=== PATIENT | female | born 1995 | race Hispanic/Latino ===

== ENCOUNTER 2018-02-16 20:58 | Inpatient (IN) | payer MEDICAID ==
[2018-02-16] MEDS ORDERED: LACTATED RINGERS 1,000 ML ONE (21:57)
[2018-02-16] MEDS ORDERED: XYLOCAINE 2% INFILTRATI ONE (22:30)
[2018-02-16] MEDS ORDERED: BRETHINE SUB-Q PRN (22:30)
--- NOTE | 2018-02-16 22:47 | History and Physical Report ---
History of Present Illness Date of examination: 02/16/18 Date of admission: 02/16/18 21:23 Chief complaint: Here for induction of labor due to morbid obesity and preeclampsia superimposed on chronic hypertension. History of present illness: 22 year old presents for cervical ripening and induction of labor due to morbid obesity and chronic hypertension. Patient has received care at [facility]ISTORY; she has also been receiving care at [facility]. Patient is morbidly obese and has been diagnosed with mild preeclampsia superimposed on chronic hypertension. Patient had elevated 1 hour sugar test but negative 3 hour OGTT. LMP 05/19/17. EDC 02/23/18. EGA 39 weeks. Patient reports active movement. She reports irregular mild contractions. She denies leaking of fluid or vaginal bleeding. She denies headache, visual disturbance, nausea or vomiting, swelling, or epigastric pain. labs are as follows: O+, antibody screen negative, rubella immune, RPR nonreactive, HIV negative, hemoglobin electrophoresis AA, GC negative, chlamydia negative, HSV 2 negative, diabetes screen 147, 3 hour OGTT negative ( 82, 150, 96, 58), GBS negative, hepatitis B surface antigen negative, pap negative. Past History Past Medical History: other (morbid obesity) Past Surgical History: tonsillectomy [employer] H[employer]ORY History: denies: chlamydia, gonorrhea, hepatitis B, herpes, HIV, syphilis Family/Genetic History: other (strong family history of autism (dad, siblings, FOB sister).) Social history: single, full code. denies: smoking, alcohol abuse - Obstetrical History Expected Date of Delivery: 02/23/18 Actual Gestation: 39 Week(s) 0 Day(s) : 2 Para: 0 Hx # Term Pregnancies: 1 Number of Pregnancies: 0 Spontaneous Abortions: 1 Induced : 0 Number of Living Children: 0 Medications and Allergies Allergies Allergy/AdvReac Type Severity Reaction Status Date / Time No Known Allergies Allergy Verified 02/16/18 22:51 Active Meds: Active Medications Ephedrine Sulfate (Ephedrine Sulfate) 10 mg IV Q2M PRN PRN Reason: Hypotension Lactated Ringer's (Lactated Ringers) 1,000 mls @ 125 mls/hr IV DIRECT JESSIKA Oxytocin/Sodium Chloride (Pitocin/Ns 20 Unit/1000ml Drip) 20 units in 1,000 mls @ 125 mls/hr IV DIRECT JESSIKA Oxytocin/Sodium Chloride (Pitocin/Ns 30 Unit/500ml) 30 units in 500 mls @ 0 mls /hr IV TITR JESSIKA; Protocol Labetalol HCl (Normodyne) 200 mg PO BID JESSIKA Lidocaine (Xylocaine 2%) 20 ml INFILTRATI ONCE ONE Stop: 02/16/18 22:31 Terbutaline Sulfate (Brethine) 0.25 mg SUB-Q ONCE PRN PRN Reason: Hyperstimulation/Hypertonicity Review of Systems All systems: negative (no complaints) - Vital Signs Vital signs: Vital Signs Pulse BP 115 H 130/69 02/16/18 21:20 02/16/18 21:20 Temp Pulse Resp BP Pulse Ox 117 H 130/69 98 02/16/18 22:44 02/16/18 21:20 02/16/18 22:44 - Physical Exam Breasts: Positive: deferred Cardiovascular: Regular rate, Normal S1, Normal S2, No murmurs Lungs: Positive: Clear to auscultation Abdomen: Positive: normal appearance, soft, other (obese). Negative: distention , tenderness, guarding, rigidity Genitourinary (Female): Positive: normal external genitalia. Negative: perineal /vulvar lesions (no lesions seen on careful exam with bright light upon admission) Vagina: Positive: normal moisture Uterus: Positive: enlarged Anus/Rectum: Positive: normal perianal skin Extremities: Positive: normal - Obstetrical FHR: category 1 Uterine Contraction Monitor Mode: External Cervical Dilatation: 0 Cervical Effacement Percentage: 50 station: -4 Uterine Contraction Pattern: Irregular Uterine Contraction Intensity: Mild Results All other labs normal. Assessment and Plan A: at 39 weeks gestation. Morbid obesity. Chronic hypertension with superimposed mild preeclampsia. GBS negative. P: Admit. Cervical ripening and induction of labor. Continuous EFM. Discussed with patient risks and benefits of cervical ripening and induction of labor; patient consented to cervical ripening and induction of labor.
[2018-02-16] MEDS ORDERED: LACTATED RINGERS 1,000 ML IV SCH (23:00)
[2018-02-16] MEDS ORDERED: PITOCin/NS 30 UNIT/500ML 30 UNITS/500 ML BAG IV SCH (23:00)
[2018-02-16] MEDS ORDERED: PITOCin/NS 20 UNIT/1000ML DRIP 20 UNITS/1,000 ML BAG IV SCH (23:00)
[2018-02-16 23:27] LABS: Hematocrit 35.8 % (30.3-42.9); Hemoglobin 11.8 gm/dl (10.1-14.3); Mean Corpuscular HGB Conc 33 % (30-34); Mean Corpuscular Hemoglobin 26 pg (28-32); Mean Corpuscular Volume 79 fl (79-97); Platelet Count 321 K/mm3 (140-440); Red Blood Count 4.52 M/mm3 (3.65-5.03); Red Cell Distribution Width 14.7 % (13.2-15.2)
[2018-02-16 23:43] LABS: Alanine Aminotransferase 8 units/L (7-56); Albumin 3.2 g/dL (3.9-5); BUN/Creatinine Ratio 18; Blood Urea Nitrogen 7 mg/dL (7-17); Calcium 9.5 mg/dL (8.4-10.2); Hemolysis Index 52
--- NOTE | 2018-02-17 00:39 | Ultrasound Report ---
FINAL REPORT EXAM: US OB FOLLOW UP HISTORY: size vs dates; position TECHNIQUE: Transabdominal sonographic evaluation was performed of the female pelvis with and without color Doppler imaging. PRIORS: None. FINDINGS: The uterine myometrium is unremarkable with no focal lesion identified. Single intrauterine in cephalic presentation. Measurements: BPD: 9.80 cm, 40 weeks and 1 days ([place]) HC: 35.31 cm, 41 weeks and 2 days ([place]) AC: 36.77 cm, 40 weeks and 5 days ([place]) FL: 7.87 cm, 40 weeks and 2 days ([place]) HC/AC: 0.96 Cephalic index: 85.3 KVNG: 17.5 cm. EFW 4138 grams FHR: 166 bpm GA (LMP): 39 week 0 day. BOB (LMP): 02/23/2018. GA (AUA): 40 week 4 day. BOB (AUA): 02/13/2018. IMPRESSION: Viable, single intrauterine . Estimated age by ultrasound criteria 40 weeks 4 days.
[2018-02-17] MEDS ORDERED: AMBIEN PO PRN (01:03)
[2018-02-17] MEDS: NORMODYNE PO SCH ×3 (01:20→21:45)
[2018-02-17] MEDS: HYTONE CR TP PRN (01:45)
[2018-02-17] MEDS: ALUM-MAG HYDROX-SIMETH 200-200-20MG/5ML PO PRN ×2 (01:46→06:19)
[2018-02-17 03:35] LABS: Bacteria,Urine 3+ /HPF (Negative); Bilirubin,Urine NEG (Negative); Blood,Urine NEG (Negative); Color,Urine Yellow (Yellow); Mucus,Urine FEW /HPF; Protein,Urine <15 mg/dL mg/dL (Negative); Urobilinogen,Urine < 2.0 mg/dL (<2.0)
--- NOTE | 2018-02-17 10:36 | Event Note ---
Date: 02/17/18 Estimated weight by ultrasound is slightly over 9 lbs. Patient was receiving low dose Pitocin for cervical ripening overnight but difficulty tracing baby with EFM due to patient's habitus and her difficulty getting comfortable in the bed. Discussed with Dr. Aviles estimated weight, difficulty tracing the baby, unfavorable cervical exam, inability to run Pitocin since not tracing heart rate well with external monitor. Dr. Aviles recommends section. Discussed this with patient. Patient states she would like to have section for delivery. Informed Dr. Aviles of patient's decision and RN notified to plan for section around noon today.
[2018-02-17] MEDS ORDERED: PEPCID IV SCH (11:31)
[2018-02-17] MEDS ORDERED: BICITRA PO SCH (11:31)
[2018-02-17] MEDS ORDERED: LACTATED RINGERS 1,000 ML IV SCH (12:00)
[2018-02-17] MEDS ORDERED: ANCEF/STERILE WATER 2 GM/20 ML 2 GM/20 ML SYRINGE IV NR (12:00)
[2018-02-17] MEDS ORDERED: PITOCin/NS 20 UNIT/1000ML DRIP 20 UNITS/1,000 ML BAG IV SCH ×2 (12:00→17:00)
[2018-02-17] MEDS ORDERED: REGLAN IV ONE (12:00)
--- NOTE | 2018-02-17 12:32 | Anesthesia Consultation ---
Anesthesia Consult and Med Hx Date of service: 02/17/18 - Pre-Operative Health Status ASA Pre-Surgery Classification: ASA3 Proposed Anesthetic Plan: Epidural, Spinal - Pre-Anesthesia Comment Pre-Anesthesia Comments: 39wks gestation PMH morbid obesity, cHTN with superimposed pre-eclampsia scheduled for primary c/s 2/2 failure to progress. - Pulmonary Hx Asthma: Yes (prn inhaler use; last exacerbation 6 yrs ago) Hx Pneumonia: No - Cardiovascular System Hx Hypertension: Yes (cHTN with superimposed pre-eclampsia) - Central Nervous System Hx Seizures: No Hx Psychiatric Problems: No - Endocrine Hx Renal Disease: No Hx Liver Disease: No Hx Insulin Dependent Diabetes: No Hx Non-Insulin Dependent Diabetes: No Hx Thyroid Disease: No - Hematic Hx Anemia: No Hx Sickle Cell Disease: No - Other Systems Hx Alcohol Use: Yes
[2018-02-17] MEDS ORDERED: PHENERGAN PR PRN (14:57)
[2018-02-17] MEDS ORDERED: DILAUDID IV PRN (14:57)
[2018-02-17] MEDS ORDERED: NUBAIN IV PRN (14:57)
[2018-02-17] MEDS ORDERED: NARCAN 0.4 MG/1 ML IV PRN ×2 (14:57→16:26)
[2018-02-17] MEDS ORDERED: ZOFRAN IV PRN (14:57)
[2018-02-17] MEDS ORDERED: PHENERGAN PO PRN (14:57)
[2018-02-17] MEDS ORDERED: SODIUM CHLORIDE FLUSH SYRINGE 10 ML IV NR (15:00)
[2018-02-17] MEDS ORDERED: NEO SYNEPHRINE/NS Syringe(OR USE) IV ONE (15:26)
[2018-02-17] MEDS ORDERED: ZOFRAN ONE (15:26)
[2018-02-17] MEDS ORDERED: NACL 0.9% IR ONE (15:40)
[2018-02-17] MEDS ORDERED: WATER FOR IRRIG STERILE IR ONE (15:40)
[2018-02-17] MEDS ORDERED: MORPHINE ONE (15:52)
[2018-02-17] MEDS ORDERED: HEMABATE IM ONE (15:53)
[2018-02-17] MEDS ORDERED: NACL P/F VIAL (10 ML) 10 ML ONE (15:55)
[2018-02-17] MEDS ORDERED: XYLOCAINE CARDIAC IV ONE (15:58)
--- NOTE | 2018-02-17 16:23 | Operative Report ---
Operative Report Operative Report: Date of procedure: 02/17/2018 Pre-operative diagnosis: 1. Intrauterine at 39-0/7 weeks 2. Chronic hypertension with superimposed preeclampsia 3. Morbid obesity 4. Suspected macrosomia Post-operative diagnosis: Same Procedure name(s): Primary low transverse section Surgeon: Jax Aviles MD Gas Load Dispatcher: None Anesthesia: Spinal anesthesia by Dr. Figueredo EBL: 400 mls Findings: A 3793 g female Apgars 8 at 1 minute 9 at 5 minutes. Clear amniotic fluid. Normal uterus. Normal tubes and ovaries bilaterally. Procedure: After the patient was prepped and draped in usual sterile fashion, and after satisfactory level of epidural anesthesia was obtained, the skin knife was used to make a transverse skin incision. The incision was excised down to layer of the fascia, which was nicked in the midline and extended laterally using the Bovie cautery. The rectus muscles were dissected off the rectus fascia both superiorly and inferiorly. The rectus bellies in the midline, and the peritoneum was entered under direct visualization. The peritoneal incision was extended superiorly and inferiorly. A bladder flap was created and the bladder blade was then placed. The uterus was scored in a curvilinear linear fashion, entered in the midline revealing clear amniotic fluid. The infant's head was delivered onto the surgical field, and the oropharynx and nasopharynx were bulb suctioned. The rest of the infant's body was delivered, cord was doubly clamped and cut and the infant was handed to the waiting respiratory team. Cord blood was then obtained. The placenta was manually removed from the uterus, and the uterus removed from its normal anatomical position. After gentle uterine lavage, the incision was inspected and found to be without extensions. It was then closed in 2 layers using 0 Vicryl suture in a running interlocking fashion, the second layer imbricating the first. After good hemostasis was achieved, copious amounts or irrigation was performed, and the gutters were suctioned free of blood and blood clots. Tisseel sealant was sprayed across the uterine incision. The uterus was then returned to its normal anatomical position, and after excellent hemostasis assured, the peritoneum was re-approximated using 3-0 Vicryl suture in a running interlocking fashion, and then the rectus muscles were re-approximated using 3-0 Vicryl suture in a [id number] configuration. The fascia was then re-approximated using 0 Vicryl suture in running interlocking fashion. The subcutaneous layer was made hemostatic using Bovie cautery, the Tisseel sealant was sprayed across the fascial incision and the skin edges re- approximated using 4-0 Vicryl suture in a sub-cuticular fashion. Patient tolerated the procedure well was transported to recovery in stable condition.
[2018-02-17] MEDS ORDERED: MYLICON PO PRN (16:26)
[2018-02-17] MEDS ORDERED: NORCO 5/325 PO PRN (16:26)
[2018-02-17] MEDS ORDERED: TUCKS PAD TP PRN (16:26)
[2018-02-17] MEDS ORDERED: LANSINOH TP PRN (16:26)
[2018-02-17] MEDS ORDERED: SENOKOT PO PRN (16:26)
[2018-02-17] MEDS ORDERED: PERCOCET 5/325 PO PRN (16:26)
[2018-02-17] MEDS ORDERED: MILK OF MAGNESIA PO PRN (16:26)
[2018-02-17] MEDS ORDERED: SODIUM CHLORIDE FLUSH SYRINGE 10 ML IV SCH (17:00)
[2018-02-17] MEDS ORDERED: D5LR 1,000 ML IV SCH (17:00)
[2018-02-17] MEDS: TORADOL IV SCH (20:15)
[2018-02-17] MEDS: TYLENOL PO SCH (20:15)
[2018-02-17] MEDS: ANCEF/NS 1 GM/50 ML 1 GM/50 ML BAG IV SCH (21:00)
[2018-02-18] MEDS: TORADOL IV SCH ×3 (02:45→17:20)
[2018-02-18] MEDS: TYLENOL PO SCH ×2 (02:45→10:20)
[2018-02-18 06:05] LABS: Hematocrit 29.3 % (30.3-42.9); Hemoglobin 9.5 gm/dl (10.1-14.3)
[2018-02-18] MEDS: ANCEF/NS 1 GM/50 ML 1 GM/50 ML BAG IV SCH (06:26)
[2018-02-18] MEDS ORDERED: BOOSTRIX IM ONE (06:28)
--- NOTE | 2018-02-18 07:45 | Progress Note ---
Assessment and Plan A: /postop day 1 S/P primary LTCS. Anemia. Skin rash, possible PUPPP. Morbid obesity. Chronic hypertension with superimposed preeclampsia. P: Encouraged ambulation. Advance diet as tolerated. Continue Hydrocortisone ointment for rash. Pt. to have dermatology consult tomorow if rash not improved. Supplement with iron. Subjective - Subjective Date of service: 02/18/18 Principal diagnosis: /postop day 1 S/P primary LTCS Interval history: /postop day 1 S/P primary LTCS. Patient is doing well. She is bottlefeeding. She reports small amount of lochia. Monsivais catheter has been removed and patient states she has not needed to void yet this morning since it was removed. Patient reports she is passing gas. She denies nausea and vomiting. Ambulating well. Patient denies headache, cough, shortness of breath, chest pain, leg pain, or abdominal pain. Patient denies visual disturbance or generalized edema. Patient has a rash on abdomen and both arms and legs. She states she was told by OB provider at office that this is PUPPP rash. Patient is currrently using Hydrocortisone cream to control the symptoms of itching. Patient reports: appetite normal, pain well controlled, flatus, ambulating normally [place]: doing well Objective - Vital Signs Latest vital signs: Vital Signs Temp Pulse Resp BP BP Pulse Ox 02/17/18 21:45 95 H 112/64 02/17/18 21:35 98.2 F 95 H 112/64 18 L 02/17/18 19:03 97.4 F L 84 22 125/84 98 02/17/18 17:30 98.1 F 86 17 110/67 97 02/17/18 17:15 88 16 104/67 97 02/17/18 17:00 94 H 20 112/64 97 02/17/18 16:55 92 H 21 111/60 97 02/17/18 16:50 98.0 F 88 20 103/61 02/17/18 16:45 88 21 110/63 97 02/17/18 16:38 87 18 104/61 02/17/18 16:33 98.0 F 81 20 98/55 97 02/17/18 15:18 97 02/17/18 14:21 96 H 133/80 02/17/18 13:20 96 H 132/71 08/18/18 12:34 107 H 122/58 08/18/18 11:38 51 L 81 L 08/18/18 11:36 108 H 97 08/18/18 11:31 107 H 97 08/18/18 11:26 109 H 96 08/18/18 11:21 108 H 96 08/18/18 11:16 105 H 98 08/18/18 11:15 107 H 0 L 08/18/18 11:11 111 H 96 08/18/18 11:06 110 H 97 08/18/18 10:55 111 H 97 08/18/18 10:50 103 H 97 08/18/18 10:45 104 H 96 08/18/18 10:40 105 H 98 08/18/18 10:36 109 H 93 08/18/18 10:35 109 H 94 08/18/18 10:30 112 H 98 08/18/18 10:25 107 H 96 08/18/18 10:20 122 H 97 08/18/18 10:19 112 H 148/89 93 08/18/18 10:15 110 H 97 08/18/18 10:11 111 H 129/73 08/18/18 10:10 112 H 98 08/18/18 10:05 103 H 99 08/18/18 10:00 106 H 95 08/18/18 09:55 104 H 98 08/18/18 09:50 112 H 98 08/18/18 09:45 107 H 98 08/18/18 09:40 104 H 97 08/18/18 09:34 103 H 129/73 08/18/18 09:08 82 97 08/18/18 09:03 91 H 96 08/18/18 08:58 93 H 97 08/18/18 08:56 110 H 91 08/18/18 08:53 101 H 91 08/18/18 08:48 105 H 91 08/18/18 08:43 100 H 91 08/18/18 08:41 82 94 08/18/18 08:38 102 H 97 08/18/18 08:33 99 H 98 08/18/18 08:28 99 H 98 08/18/18 08:23 92 H 98 08/18/18 08:21 94 H 117/52 08/18/18 08:18 88 97 08/18/18 08:13 96 H 97 08/18/18 08:03 89 95 02/17/18 08:01 98 H 114/59 02/17/18 08:00 87 02/17/18 07:59 97.9 F 95 H 20 122/73 100 02/17/18 07:58 99 H 93 02/17/18 07:55 116 H 89 02/17/18 07:53 107 H 97 Intake and Output 02/17/18 02/17/18 02/18/18 15:59 23:59 07:59 Intake Total 1200 550 Output Total 600 Balance 1200 -50 Intake: IV 1200 550 ANCEF/NS 1 GM/50 ML 1 gm 50 In 50 ml @ 100 mls/hr IV Q8H JESSIKA Rx#:[id number] Output: Urine 600 Uretheral (Monsivais) 300 - Exam Cardiovascular: Present: Regular rate, Normal S1, Normal S2, No murmurs Lungs: Present: Clear to auscultation Abdomen: Present: normal appearance, soft, normal bowel sounds, other (rash and stretch dumont noted). Absent: distention, tenderness, guarding, rigidity Uterus: Present: normal, firm, fundal height below umbilicus. Absent: tenderness Extremities: Present: normal, edema (mild pedal edema bilaterally). Absent: tenderness Incision: Present: normal, dry, intact, dressed - Labs Labs: Abnormal lab results 02/18/18 Range/Units 04:27 Hgb 9.5 L (10.1-14.3) gm/dl Hct 29.3 L D (30.3-42.9) %
[2018-02-18] MEDS: FEOSOL PO SCH (10:20)
[2018-02-18] MEDS: MOTRIN PO PRN (10:20)
[2018-02-18] MEDS: NORMODYNE PO SCH ×2 (10:59→22:36)
[2018-02-18] MEDS ORDERED: M-M-R II VACCINE SUB-Q ONE (16:28)
[2018-02-18] MEDS: HYTONE CR TP PRN (22:36)
[2018-02-18] MEDS: BENADRYL PO PRN (22:39)
[2018-02-19] MEDS: MOTRIN PO PRN ×3 (00:16→22:56)
--- NOTE | 2018-02-19 09:54 | Progress Note ---
Assessment and Plan - Patient Problems (1) S/P primary low transverse Current Visit: Yes Status: Acute Plan to address problem: POD 2 with nonspecific rash Continue routine postop orders Anticipate discharge in 24 hrs (2) Chronic hypertension during Current Visit: Yes Status: Acute Plan to address problem: BPs stable Continue Labetalol 200mg PO BID (3) Anemia in puerperium, baby delivered during current episode of care Current Visit: Yes Status: Acute Plan to address problem: Asymptomatic Continue iron therapy (4) Rash and nonspecific skin eruption Current Visit: Yes Status: Acute Plan to address problem: On hydrocortisone topical cream. Itching better but rash worsening Dermatology consult ordered. Still pending. Subjective - Subjective Date of service: 02/19/18 Principal diagnosis: S/P primary LTCS; POD #2 Patient reports: appetite normal, voiding normally, pain well controlled, flatus , ambulating normally, other (worsening rash on abdomed and bilateral upper & lower extremities. Started 2 days prior to delivery), no dizzy ambulation, no bowel movement [place]: doing well, bottle feeding Objective - Vital Signs Latest vital signs: Vital Signs Temp Pulse Resp BP Pulse Ox 02/19/18 01:37 99.1 F 106 H 20 115/67 95 02/19/18 01:16 18 02/19/18 00:16 18 02/18/18 22:36 98 H 120/71 02/18/18 16:07 99.2 F 101 H 22 104/54 95 02/18/18 12:17 98.9 F 87 22 108/59 95 02/18/18 10:59 95 H 116/76 Intake and Output 02/18/18 02/19/18 02/19/18 23:59 07:59 15:59 Intake Total 1320 360 Output Total 400 Balance 920 360 Intake: Oral 1320 360 Output: Urine 400 Void 400 Other: Total, Intake Amount 360 120 Total, Output Amount 400 # Voids Indwelling Catheter 2 Void 1 1 - Exam Abdomen: Present: normal appearance, soft, other (abdominal binder in place) Vulva: both: normal Uterus: Present: normal, firm, fundal height below umbilicus Extremities: Present: edema (1+, BLE) Incision: Present: normal, dry, dressed
[2018-02-19] MEDS: PRENATAL VITAMIN PO SCH ×2 (10:50→10:51)
[2018-02-19] MEDS: NORMODYNE PO SCH ×2 (10:51→22:57)
[2018-02-19] MEDS: FEOSOL PO SCH (10:51)
--- NOTE | 2018-02-19 20:52 | Consultation ---
History of Present Illness - Reason for Consult Consult date: 02/19/18 generalized itchy rashes Requesting physician: ZENAIDA HARRIS - History of Present Illness Patient is a 25-year-old lady who had section postop day 2 and had pruritic rashes all over body 2 days prior to admission. No fever, chest tightness or shortness of breath. No nausea or vomiting. However rashes that were formally in the upper extremities and abdomen are now extending down to her lower legs. Consult was obtained to assist in the management of these macular rashes. Of note the patient is not currently on any antibiotics. Symptoms started prior to admission. Past History Past Medical History: hypertension Past Surgical History: Social history: single, full code. denies: smoking, alcohol abuse Family history: no significant family history Medications and Allergies Allergies Allergy/AdvReac Type Severity Reaction Status Date / Time No Known Allergies Allergy Verified 02/16/18 22:51 Home Medications Medication Instructions Recorded Confirmed Last Taken Type Ferrous Sulfate [Feosol 325 MG tab] 325 mg PO BID #60 tablet 02/17/18 Unknown Rx HYDROcodone/APAP 5-325 [Mousie 1 each PO Q6HR PRN #30 tablet 02/17/18 Unknown Rx 5/325] Ibuprofen [Motrin] 800 mg PO Q8HR PRN #30 tablet 02/17/18 Unknown Rx Labetalol [Normodyne] 200 mg PO BID 02/17/18 02/17/18 1 Day Ago History ~02/16/18 200 mg Pnv Plus Multivit Tab 1 tab PO DAILY 02/17/18 02/17/18 1 Day Ago History ~02/16/18 1 tablet Vit Calc,Iron,Folic 1 each PO DAILY #30 tablet 02/17/18 Unknown Rx [ Vitamins] Active Meds: Active Medications Acetaminophen/Hydrocodone Bitart (Mousie 5/325) 1 each PO Q4H PRN PRN Reason: Pain, Moderate (4-6) Al Hydrox/Mg Hydrox/Simethicone (Alum-Mag Hydrox-Simeth [phone]/5ml) 30 ml PO Q4H PRN PRN Reason: Indigestion Last Admin: 02/17/18 06:19 Dose: 30 ml Diphenhydramine HCl (Benadryl) 25 mg PO Q6H PRN PRN Reason: Itching Last Admin: 02/18/18 22:39 Dose: 25 mg Ferrous Sulfate (Feosol) 325 mg PO QDAY [facility] Last Admin: 02/19/18 10:51 Dose: 325 mg Hydrocortisone Acetate (Hytone Cr) 1 applic TP Q12H PRN PRN Reason: Skin Irritation Last Admin: 02/18/18 22:36 Dose: 1 applic Hydromorphone HCl (Dilaudid) 0.25 mg IV Q15M PRN PRN Reason: Breakthrough Pain Oxytocin/Sodium Chloride (Pitocin/Ns 20 Unit/1000ml Drip) 20 units in 1,000 mls @ 125 mls/hr IV DIRECT JESSIKA Oxytocin/Sodium Chloride (Pitocin/Ns 20 Unit/1000ml Drip) 20 units in 1,000 mls @ 0 mls/hr IV TITR JESSIKA Dextrose/Lactated Ringer's (D5lr) 1,000 mls @ 125 mls/hr IV DIRECT JESSIKA Oxytocin/Sodium Chloride (Pitocin/Ns 20 Unit/1000ml Drip) 20 units in 1,000 mls @ 250 mls/hr IV DIRECT JESSIKA Ibuprofen (Motrin) 800 mg PO Q6H PRN PRN Reason: Pain, Mild (1-3) Last Admin: 02/19/18 13:35 Dose: 800 mg Labetalol HCl (Normodyne) 200 mg PO BID [facility] Last Admin: 02/19/18 10:51 Dose: 200 mg Magnesium Hydroxide (Milk Of Magnesia) 30 ml PO QHS PRN PRN Reason: Constip Unrelieved By Senna Multi-Ingredient Ointment (Lansinoh) 1 applic TP PRN PRN PRN Reason: dryness/cracking Multivitamins/Iron/Calcium ( Vitamin) 1 each PO QDAY [facility] Last Admin: 02/19/18 10:51 Dose: 1 each Naloxone HCl (Narcan 0.4 Mg/1 Ml) 0.1 mg IV Q2MIN PRN PRN Reason: Res Rate </= 8 or 02 SAT < 92% Ondansetron HCl (Zofran) 4 mg IV Q8H PRN PRN Reason: Nausea And Vomiting Oxycodone/Acetaminophen (Percocet 5/325) 2 tab PO Q6H PRN PRN Reason: Pain, Moderate (4-6) Promethazine HCl (Phenergan) 25 mg PO Q6H PRN PRN Reason: Nausea And Vomiting Promethazine HCl (Phenergan) 25 mg VT Q6H PRN PRN Reason: Nausea And Vomiting Senna (Senokot) 17.2 mg PO QHS PRN PRN Reason: Constipation Simethicone (Mylicon) 80 mg PO Q6H PRN PRN Reason: Gas pain Sodium Chloride (Sodium Chloride Flush Syringe 10 Ml) 10 ml IV PRN JESSIKA [place]/Glycerin (Tucks Pad) 1 each TP PRN PRN PRN Reason: Hemorrhoids/cleansing/soothing Review of systems Constitutional: Well Nouridhed and Well developed. Head: NC/ AT Eyes: Denies any visual impairments. No discharge from the eyes Nose: Denies any rhinorrhea or epistaxis Throats: Denies any post nasal drainage. Ears: Denies any hearing deficits Cardiovascular system: Denies any chest pain, shortness of breath, orthopnea, paroxysmal nocturnal dyspnea, or palpitation. Respiratory system: Denies any cough, difficulty breathing, wheezing, pleuritic chest pain, Gastrointestinal system: Denies any abdominal pain, nausea vomiting, hematemesis or melena. Neurological system: Denies any headache, slurred speech, facial droop, lateralizing weakness Genitalia system: Denies any dysuria, urinary frequency or urgency, urethral discharge Skin: Marculo-papular rashes on ezequiel trunk and extremities. No hyperpigmented spots. Hematological: Denies any cervical tenderness hemorrhages or petechia. Immunological: Denies any multiple septic spots, Lymphatic: Denies any generalized lymphadenopathy. Endocrine: Denies any polyuria, polydipsia, polyphagia. No heat or cold intolerance. Musculoskeletal system: No joint pain or swelling. Psych: No visual, tactile, auditory or hallucination Exam - Physical Exam Narrative exam: Constitutional: Well-nourished well-developed. In no distress Head: Normocephalic atraumatic Eyes: Pupils are equal round and reactive to light Nose: No enlarged turbinates, no septal deviation. Mouth: Moist mucous membranes. Neck: Supple no thyromegaly. No bruit. No JVD Heart: Regular rate and rhythm, S1-S2 abnormal. No rubs murmurs or gallop Lungs: Clear to auscultation bilaterally no rales or rhonchi Abdomen: Soft, nontender. Bowel sound are present. Extremities: No edema no cyanosis and no clubbing. Neuro: Alert oriented Oriented x3. No focal sensory or motor deficit. Skin: Maculopapular rashes on her upper extremity the trunk and abdomen. Psychiatry: Euthymic. Calm. - Constitutional Vitals: Temp Pulse Resp BP Pulse Ox 97.9 F 99 H 18 118/66 98 02/19/18 16:27 02/19/18 16:28 02/19/18 16:27 02/19/18 10:51 02/19/18 16:28 Results - Labs CBC & Chem 7: 02/18/18 04:27 02/16/18 22:10 Assessment and Plan - Maculopapular rashes and all per lower abdomen as well as the trunk Allergic in nature and absence of any fever Reviewed all medications. Commence patient on prednisone at 40 mg daily, Benadryl, continue with hydrocodone cream. If pressures continue was switched to labetalol to hydralazine - Hypertension Controlled on labetalol Thank you for this consult. We'll continue to follow the patient with you.
[2018-02-19] MEDS: BENADRYL PO PRN (22:56)
[2018-02-19] MEDS ORDERED: BENADRYL IV PRN (23:35)
[2018-02-20] MEDS: MOTRIN PO PRN ×3 (05:50→18:07)
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
[2018-02-20] MEDS: NORMODYNE PO SCH (10:18)
[2018-02-20] MEDS: FEOSOL PO SCH (10:18)
[2018-02-20] MEDS: PRENATAL VITAMIN PO SCH (10:18)
[2018-02-20] MEDS: DELTASONE PO SCH (10:18)
[2018-02-20] MEDS: BENADRYL PO PRN ×3 (11:39→23:46)
[2018-02-20] MEDS: HYTONE CR TP PRN (13:24)
--- NOTE | 2018-02-20 21:53 | Progress Note ---
Assessment and Plan - Maculopapular rashes and all per lower abdomen as well as the trunk Allergic in nature in the absence of any fever - likely drug induced Jaylon d/c Labetalol Commence pt on Hydrallazine Continue with prednisone at 40 mg daily, Benadryl, continue with hydrocortisone cream. If pressures continue was switched to labetalol to hydralazine - Hypertension Will hold labetalol. commence pt on Hydralazin 100mg bid. Pt may be discharged from medical stand point and f/u with PCP in 3-5 who will consider referral to Informatics Coordinator if symptoms persist. Subjective Date of service: 02/20/18 Principal diagnosis: S/P primary LTCS; POD #3; Worsening macular rash (mananged by Internal med) Interval history: Pt seen ans examined. itching getting better. Still having rashes on her legs. No fever of shortness of breath Objective - Exam Narrative Exam: Constitutional: Well-nourished well-developed. In no distress Head: Normocephalic atraumatic Eyes: Pupils are equal round and reactive to light Nose: No enlarged turbinates, no septal deviation. Mouth: Moist mucous membranes. Neck: Supple no thyromegaly. No bruit. No JVD Heart: Regular rate and rhythm, S1-S2 abnormal. No rubs murmurs or gallop Lungs: Clear to auscultation bilaterally no rales or rhonchi Abdomen: Soft, nontender. Bowel sound are present. Extremities: No edema no cyanosis and no clubbing. Neuro: Alert oriented Oriented x3. No focal sensory or motor deficit. Skin: Maculopapular rashes on her upper extremity the trunk and lower extremities. Psychiatry: Euthymic. Calm. - Constitutional Vitals: Vital Signs - 12hr 02/20/18 02/20/18 02/20/18 10:18 11:42 16:12 Temperature 97.6 F Pulse Rate 92 H 89 Respiratory 18 20 Rate Blood Pressure 128/80 123/64 O2 Sat by Pulse 87 Oximetry 02/20/18 18:07 Temperature Pulse Rate Respiratory 18 Rate Blood Pressure O2 Sat by Pulse Oximetry - Labs CBC & Chem 7: 02/18/18 04:27 02/16/18 22:10
[2018-02-20] MEDS ORDERED: APRESOLINE PO SCH (22:00)
[2018-02-21 06:12] LABS: Basophils % (Auto) 0.3 % (0.0-1.8); Eosinophils # (Auto) 0.7 K/mm3 (0.0-0.4); Eosinophils % (Auto) 5.7 % (0.0-4.3); Hematocrit 29.3 % (30.3-42.9); Hemoglobin 9.4 gm/dl (10.1-14.3); Lymphocytes # (Auto) 2.6 K/mm3 (1.2-5.4); Lymphocytes % (Auto) 20.4 % (13.4-35.0); Mean Corpuscular HGB Conc 32 % (30-34); Mean Corpuscular Hemoglobin 26 pg (28-32); Mean Corpuscular Volume 81 fl (79-97); Monocytes # (Auto) 0.9 K/mm3 (0.0-0.8); Monocytes % (Auto) 7.1 % (0.0-7.3); Platelet Count 303 K/mm3 (140-440); Red Cell Distribution Width 15.2 % (13.2-15.2)
[2018-02-21 06:31] LABS: Alanine Aminotransferase 10 units/L (7-56); Albumin 2.5 g/dL (3.9-5); BUN/Creatinine Ratio 18; Blood Urea Nitrogen 7 mg/dL (7-17); Calcium 8.5 mg/dL (8.4-10.2); Hemolysis Index 29
[2018-02-21 08:51] VITALS: BP 123/76
[2018-02-21] MEDS: BENADRYL PO PRN (09:10)
--- NOTE | 2018-02-21 10:42 | Progress Note ---
Assessment and Plan A: POD #4 CHTN Maculopapular Rash P: Follow routine orders Continue Prednisone, Hydrocortisone for rash Continue Hydralazine 50mg q 8 hours D/c Home today RTO in one week Subjective - Subjective Date of service: 02/21/18 Principal diagnosis: S/P primary LTCS; POD #3; Worsening macular rash (mananged by Internal med) Patient reports: appetite normal, voiding normally, pain well controlled, flatus , bowel movement, ambulating normally, other (States Prednisone is helpful for rash) : doing well, bottle feeding (and ) Objective - Vital Signs Latest vital signs: Vital Signs Temp Pulse Resp BP BP Pulse Ox 02/21/18 08:15 98.2 F 72 18 123/76 94 02/21/18 00:00 98.2 F 97 H 18 122/71 02/20/18 18:07 18 02/20/18 16:12 97.6 F 89 20 123/64 87 02/20/18 11:42 18 Intake and Output 02/20/18 02/21/18 02/21/18 22:59 06:59 14:59 Intake Total 480 240 Balance 480 240 Intake: Oral 480 240 Other: Total, Intake Amount 480 240 # Voids Void 1 1 - Exam Breasts: Present: normal Cardiovascular: Present: Regular rate Lungs: Present: Clear to auscultation, Normal air movement Abdomen: Present: normal appearance, soft, normal bowel sounds Uterus: Present: normal, firm, fundal height below umbilicus Extremities: Present: normal Incision: Present: normal, dry, intact - Labs Labs: Abnormal lab results 02/21/18 02/21/18 Range/Units 05:27 05:27 WBC 12.5 H (4.5-11.0) K/mm3 RBC 3.60 L (3.65-5.03) M/mm3 Hgb 9.4 L (10.1-14.3) gm/dl Hct 29.3 L (30.3-42.9) % MCH 26 L (28-32) pg Eos % (Auto) 5.7 H (0.0-4.3) % [place] # 0.9 H (0.0-0.8) K/mm3 Eos # 0.7 H (0.0-0.4) K/mm3 Seg Neutrophils # 8.3 H (1.8-7.7) K/mm3 Sodium 136 L (137-145) mmol/L Carbon Dioxide 18 L (22-30) mmol/L Creatinine 0.4 L (0.7-1.2) mg/dL Total Protein 5.8 L (6.3-8.2) g/dL Albumin 2.5 L (3.9-5) g/dL
--- NOTE | 2018-02-21 10:44 | Discharge Summary ---
Providers - Providers Date of Admission: 02/16/18 21:23 Date of discharge: 02/21/18 Attending physician: TAMARA LEIGH MD 02/18/18 22:14 Consult to Physician [CONS] Routine Comment: Consulting Provider: DEANA ANDRE Physician Instructions: Reason For Exam: rashes Primary care physician: TAMARA LEIGH MD Hospitalization Reason for admission: induction of labor Delivery: Procedure: primary low transverse Episiotomy: none Laceration: none Incision: normal, dry, intact complications: none Discharge diagnosis: IUP at term delivered [place] baby: female Condition at discharge: Good Disposition: DC-01 TO HOME OR SELFCARE Plan - Discharge Medications Prescriptions: Ferrous Sulfate [Feosol 325 MG tab] 325 mg PO BID #60 tablet HYDROcodone/APAP 5-325 [[place] 5/325] 1 each PO Q6HR PRN #30 tablet PRN Reason: Pain Ibuprofen [Motrin] 800 mg PO Q8HR PRN #30 tablet PRN Reason: Moder Pain Unrelieved By [place] Vit Calc,Iron,Folic [ Vitamins] 1 each PO DAILY #30 tablet - Provider Discharge Summary Activity: routine, no sex for 6 weeks, no heavy lifting 4 weeks Diet: routine Instructions: routine Additional instructions: [] Smoking cessation referral if applicable(refer to patient education folder for contact #) [] Refer to [facility] Booklet Call your doctor immediately for: * Fever > 100.5 * Heavy vaginal bleeding ( >1 pad per hour) * Severe persistent headache * Shortness of breath * Reddened, hot, painful area to leg or breast * Drainage or odor from incision. * Keep incision clean and dry at all times and follow doctor's instructions regarding bathing/showering - Follow up plan Follow up: TAMARA LEIGH MD [Primary Care Provider] - 7 Days
[2018-02-21] MEDS: PRENATAL VITAMIN PO SCH (11:02)
[2018-02-21] MEDS: DELTASONE PO SCH (11:02)
[2018-02-21] MEDS: FEOSOL PO SCH (13:39)
--- NOTE | 2018-02-21 15:42 | Event Note ---
Date: 02/21/18 was not able to see patient prior to discharge. Predecessor hospitalist had given ok for discharge.
== END 2018-02-21 15:40 | disposition home or self-care (01) | DRG 765 ==
LOC: TRG 20:58 → LD 21:23 → TRG 21:23 → LD 21:30 → OB 02-17 18:36
PROVIDERS: ADMIT Obstetrics & Gynecology; ATTEND Obstetrics & Gynecology
PROC: 10D00Z1 Extraction of Products of Conception, Low, Open Approach (ICD-10-PCS; principal; 2018-02-17)
PROC: 3E0P7VZ Introduction of Hormone into Female Reproductive, Via Natural or Artificial Opening (ICD-10-PCS; 2018-02-17)
PROC: 3E0234Z Introduction of Serum, Toxoid and Vaccine into Muscle, Percutaneous Approach (ICD-10-PCS; 2018-02-18)
DX: O11.4 Pre-existing hypertension with pre-eclampsia, complicating childbirth (principal); Z68.42 Body mass index [BMI] 45.0-49.9, adult; O10.92 Unspecified pre-existing hypertension complicating childbirth; O99.214 Obesity complicating childbirth; E66.01 Morbid (severe) obesity due to excess calories; Z23 Encounter for immunization; Z3A.39 39 weeks gestation of pregnancy; Z37.0 Single live birth; Z71.3 Dietary counseling and surveillance; O90.81 Anemia of the puerperium; D64.9 Anemia, unspecified; O99.73 Diseases of the skin and subcutaneous tissue complicating the puerperium; R21 Rash and other nonspecific skin eruption; L27.0 Generalized skin eruption due to drugs and medicaments taken internally; T44.8X5A Adverse effect of centrally-acting and adrenergic-neuron-blocking agents, initial encounter; Y92.239 Unspecified place in hospital as the place of occurrence of the external cause; O75.89 Other specified complications of labor and delivery
CPT/HCPCS: 36415; 76816; 80053; 81001; 84550; 85014; 85018; 85025; 85027; 86592; 86850; 86900; 86901; 87086; 99211; A6250; G0463; J0690; J1885; J2001; J2270; J2370; J2405; J2590; J2765; J7120; J7512

== ENCOUNTER 2018-11-22 20:27 | Emergency (ER) | payer MEDICAID, OTHER ==
[2018-11-22] MEDS ORDERED: TYLENOL PO ONE (20:53)
[2018-11-22] MEDS ORDERED: TYLENOL ONE (20:57)
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
[2018-11-22] MEDS: TYLENOL PO ONE ×3 (21:01→23:54)
[2018-11-22] MEDS ORDERED: TORADOL IM STA (23:19)
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
[2018-11-23 04:27] LABS: HCG Qualitative,Urine Negative (Negative)
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
== END 2018-11-23 06:04 | disposition home or self-care (01) ==
LOC: ED 20:27
DX: S06.0X9A Concussion with loss of consciousness of unspecified duration, initial encounter (principal); I10 Essential (primary) hypertension; J45.909 Unspecified asthma, uncomplicated; V49.49XA Driver injured in collision with other motor vehicles in traffic accident, initial encounter; Y93.89 Activity, other specified; Y92.89 Other specified places as the place of occurrence of the external cause; Y99.8 Other external cause status
CPT/HCPCS: 70450; 81025; 96372; 99284; J1885

== ENCOUNTER 2019-08-01 18:45 | Emergency (ER) | payer MEDICAID, OTHER ==
--- NOTE | 2019-08-01 20:06 | Event Note ---
ED Screening Note Date of service: 08/01/19 Time: 19:56 ED Screening Note: pt is 24 y/o female that presnts for back pain and weakness and body aches., This initial assessment/diagnostic orders/clinical plan/treatment(s) is/are subject to change based on patients health status, clinical progression and re- assessment by fellow clinical providers in the ED. Further treatment and workup at subsequent clinical providers discretion. Patient/guardian urged not to elope from the ED as their condition may be serious if not clinically assessed and managed. Initial orders include: cbc/cmp/ ua/hcg
[2019-08-01 21:43] LABS: Basophils % (Auto) 0.2 % (0.0-1.8); Eosinophils # (Auto) 0.2 K/mm3 (0.0-0.4); Eosinophils % (Auto) 1.7 % (0.0-4.3); Hematocrit 44.3 % (30.3-42.9); Lymphocytes # (Auto) 1.4 K/mm3 (1.2-5.4); Lymphocytes % (Auto) 12.9 % (13.4-35.0); Mean Corpuscular HGB Conc 34 % (30-34); Mean Corpuscular Volume 78 fl (79-97); Monocytes # (Auto) 0.7 K/mm3 (0.0-0.8); Monocytes % (Auto) 6.8 % (0.0-7.3); Platelet Count 230 K/mm3 (140-440); Red Blood Count 5.68 M/mm3 (3.65-5.03); Red Cell Distribution Width 14.3 % (13.2-15.2)
[2019-08-01 22:00] LABS: BUN/Creatinine Ratio 20; Blood Urea Nitrogen 8 mg/dL (7-17); Calcium 9.4 mg/dL (8.4-10.2); Hemolysis Index 3
[2019-08-01 23:15] LABS: Bilirubin,Urine NEG (Negative); Blood,Urine NEG (Negative); Color,Urine Yellow (Yellow); Mucus,Urine FEW /HPF; Protein,Urine <15 mg/dL mg/dL (Negative); Urobilinogen,Urine < 2.0 mg/dL (<2.0)
[2019-08-01] MEDS ORDERED: HYDROcodone/ACETAMINOPHEN 10-325MG TAB PO ONE (23:19)
[2019-08-01] MEDS ORDERED: ONDANSETRON 4 MG ODT TAB PO ONE (23:19)
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
--- NOTE | 2019-08-02 00:20 | XRay Report ---
Cervical spine 3 views Indication: neck pain Findings: There is no fracture, subluxation, or other acute radiographic abnormality of the cervical spine. The re is reversal the normal cervical lordosis. Prevertebral soft tissues are unremarkable. Disc space h eights are maintained. No fracture or subluxation is seen. Signer Name: Lul Rivera MD Signed: 08/02/2019 12:15 AM Workstation Name: [id number]
--- NOTE | 2019-08-02 00:21 | XRay Report ---
LUMBAR SPINE 3 VIEWS INDICATION: neck pain COMPARISON: None. FINDINGS: There is no fracture, subluxation, or other acute radiographic abnormality of the lumbar spine. There is mild scoliotic-like curvature convex to the left. Disc space heights are maintained. Signer Name: Lul Rivera MD Signed: 08/02/2019 12:16 AM Workstation Name: [id number]
[2019-08-02 01:10] VITALS: BP 112/68
== END 2019-08-02 01:59 | disposition home or self-care (01) ==
LOC: ED 18:45
DX: M54.2 Cervicalgia (principal); M54.5 Low back pain; I10 Essential (primary) hypertension; F17.200 Nicotine dependence, unspecified, uncomplicated; Z79.1 Long term (current) use of non-steroidal anti-inflammatories (NSAID); Z79.2 Long term (current) use of antibiotics; Z79.899 Other long term (current) drug therapy
CPT/HCPCS: 36415; 72040; 72100; 80048; 81001; 84703; 85025; Q0162